=== PATIENT | male | born 1965 | race Caucasian/White ===

== ENCOUNTER → 2020-09-17 | Outpatient (CLI) | payer OTHER | LOC: NM 09:30 | DX: R91.1 Solitary pulmonary nodule (principal) | CPT/HCPCS: 78306; A9503 ==

== ENCOUNTER → 2020-09-19 | Outpatient (CLI) | payer OTHER | LOC: MRI 14:00 | DX: R91.1 Solitary pulmonary nodule (principal) | CPT/HCPCS: 70553; A9577 ==

== ENCOUNTER → 2020-09-27 | Outpatient (CLI) | payer OTHER | LOC: EXRD 11:06 | DX: R59.0 Localized enlarged lymph nodes (principal) | CPT/HCPCS: 71046 ==